=== PATIENT | female | born 1980 | race Two or more races ===

== ENCOUNTER 2023-09-03 12:12 | Emergency (ER) | payer MEDICAID ==
[~2023-09-03] VITALS: Ht 172.7 cm; Wt 70.2 kg
[2023-09-03] MEDS ORDERED: LISI20TA28 PO (13:48)
[2023-09-03] MEDS ORDERED: AMOX-580 PO (13:48)
[2023-09-03] MEDS: cloNIDine 0.1 mg tablet PO STA (14:02)
[2023-09-03 14:27] VITALS: BP 203/118; PULSE 91; RESP 17; TEMP 97.7; O2SAT 98
== END 2023-09-03 14:29 | disposition left against medical advice (07) ==
LOC: ER 12:13
DX: J01.90 Acute sinusitis, unspecified (principal); R05.9 Cough, unspecified; I10 Essential (primary) hypertension; Z79.2 Long term (current) use of antibiotics; Z79.899 Other long term (current) drug therapy
CPT/HCPCS: 71045; 99283